=== PATIENT | male | born 1975 | race Caucasian/White ===

== ENCOUNTER 2018-02-23 10:18 | Inpatient (IN) | payer OTHER ==
[~2018-02-23] VITALS: Ht 172.7 cm; Wt 82.1 kg
[2018-02-23 10:30] VITALS: Ht 172.7 cm; Wt 82.1 kg
[2018-02-23 11:18] LABS: BASOPHIL % 0.5 % (0-2); PLATELET COUNT 267 x10^3mcL (130-400)
[2018-02-23 11:31] LABS: CARBON DIOXIDE 28.7 mmol/L (21-32); CHLORIDE SERUM 100 mmol/L (98-107); GFR1 > 60 mL/min; GLUCOSE SERUM 194 mg/dL (74-106); POTASSIUM SERUM 3.6 mmol/L (3.5-5.1); SODIUM SERUM 135 mmol/L (136-145)
[2018-02-23] MEDS ORDERED: VALSARTAN AND H1 TA3 PO (12:05)
[2018-02-23] MEDS ORDERED: AMOXICILLIN875 MG PO (12:07)
[2018-02-23] MEDS ORDERED: JANUMET 50-1,01 EACH PO (12:10)
[2018-02-23 14:21] VITALS: BP 152/90
[2018-02-23 16:16] VITALS: BP 129/82
[2018-02-23 20:57] VITALS: BP 124/87
[2018-02-24 05:34] VITALS: BP 147/85
[2018-02-24 05:36] LABS: BASOPHIL % 0.5 % (0-2); PLATELET COUNT 301 x10^3mcL (130-400); RED CELL DISTRIBUTION WIDTH 12.1 % (11.5-14.5)
[2018-02-24 07:03] LABS: CALCIUM 8.9 mg/dL (8.5-10.1); CARBON DIOXIDE 26.4 mmol/L (21-32); CHLORIDE SERUM 101 mmol/L (98-107); GFR1 > 60 mL/min; GLUCOSE SERUM 115 mg/dL (74-106); POTASSIUM SERUM 3.7 mmol/L (3.5-5.1); SODIUM SERUM 136 mmol/L (136-145)
[2018-02-24 09:35] VITALS: BP 115/80
[2018-02-24 16:39] VITALS: BP 120/80
[2018-02-24 20:41] VITALS: BP 152/91
[2018-02-25 06:17] VITALS: BP 138/90
[2018-02-25 06:31] LABS: CALCIUM 8.8 mg/dL (8.5-10.1); CARBON DIOXIDE 28.1 mmol/L (21-32); CHLORIDE SERUM 102 mmol/L (98-107); CREATININE SERUM 0.9 mg/dL (0.7-1.3); GFR1 > 60 mL/min; GLUCOSE SERUM 106 mg/dL (74-106); POTASSIUM SERUM 3.6 mmol/L (3.5-5.1); SODIUM SERUM 139 mmol/L (136-145)
[2018-02-25 07:20] LABS: BASOPHIL % 0.5 % (0-2); PLATELET COUNT 342 x10^3mcL (130-400); RED CELL DISTRIBUTION WIDTH 12.2 % (11.5-14.5)
[2018-02-25 09:04] VITALS: BP 128/88
[2018-02-25 17:14] VITALS: BP 129/84
[2018-02-25 19:20] VITALS: BP 128/86
[2018-02-26 05:35] VITALS: BP 140/88
[2018-02-26 17:19] VITALS: BP 134/93
[2018-02-26 20:36] VITALS: BP 136/90
[2018-02-27 05:19] VITALS: BP 120/76
[2018-02-27 06:14] LABS: BASOPHIL % 0.6 % (0-2); PLATELET COUNT 373 x10^3mcL (130-400)
[2018-02-27 06:48] LABS: CALCIUM 9.1 mg/dL (8.5-10.1); CHLORIDE SERUM 104 mmol/L (98-107); CREATININE SERUM 0.9 mg/dL (0.7-1.3); GFR1 > 60 mL/min; GLUCOSE SERUM 103 mg/dL (74-106); POTASSIUM SERUM 3.9 mmol/L (3.5-5.1); SODIUM SERUM 140 mmol/L (136-145)
[2018-02-27 06:54] LABS: CARBON DIOXIDE 27.2 mmol/L (21-32)
[2018-02-27 09:12] VITALS: BP 155/91
[2018-02-27 10:33] VITALS: BP 155/91
== END 2018-02-27 14:20 | disposition home health service (06) | DRG 383 ==
LOC: ED 10:18 → MU 12:01
PROVIDERS: Emergency Medicine; Internal Medicine Pulmonary Disease; Surgery
PROC: 0J9P3ZZ Drainage of Left Lower Leg Subcutaneous Tissue and Fascia, Percutaneous Approach (ICD-10-PCS; principal; 2018-02-26 09:45)
DX: L03.116 Cellulitis of left lower limb (principal); B95.62 Methicillin resistant Staphylococcus aureus infection as the cause of diseases classified elsewhere; E11.9 Type 2 diabetes mellitus without complications; I10 Essential (primary) hypertension; Z90.49 Acquired absence of other specified parts of digestive tract; L02.416 Cutaneous abscess of left lower limb
CPT/HCPCS: 82962; 94150; J0696; J1170; J2175; J2250; J2270; J2543; J3010; J3370; J7030; J7040

== ENCOUNTER 2020-02-07 12:00 | Emergency (ER) | payer OTHER, SELFPAY ==
[~2020-02-07] VITALS: Ht 170.2 cm; Wt 82.6 kg
[~2020-02-07 12:00] MED LIST: AMOXICILLIN875 MG PO; JANUMET 50-1,01 EACH PO; VALSARTAN AND H1 TA3 PO
[2020-02-07 12:02] VITALS: Ht 170.2 cm; Wt 82.6 kg
[2020-02-07 15:06] VITALS: BP 153/109
== END 2020-02-07 15:06 | disposition home or self-care (01) ==
LOC: ED 12:00
DX: U07.1 COVID-19 (principal); J12.89 Other viral pneumonia; I10 Essential (primary) hypertension; E11.9 Type 2 diabetes mellitus without complications
CPT/HCPCS: Q0092; U0003-CS